=== PATIENT | female | born 1995 | race Caucasian/White ===

== ENCOUNTER 2018-09-28 07:51 | Emergency (ER) | payer OTHER ==
--- NOTE | 2018-09-28 08:58 | RAD ---
RIGHT FOOT THREE VIEWS: History: Injury. Right foot pain. FINDINGS/IMPRESSION: There is a minimally displaced comminuted fracture involving the tuft of the distal phalanx of the fo urth toe. POS: OFF
== END 2018-09-28 08:47 | disposition home or self-care (01) ==
LOC: ERS 07:51
DX: S92.531A Displaced fracture of distal phalanx of right lesser toe(s), initial encounter for closed fracture (principal); W23.0XXA Caught, crushed, jammed, or pinched between moving objects, initial encounter